=== PATIENT | female | born 1965 | race Caucasian/White ===

== ENCOUNTER 2019-04-04 22:27 | Emergency (ER) | payer OTHER, SELFPAY ==
[2019-04-04] MEDS ORDERED: diphenhydrAMINE 50 MG/ML VIAL ONE (23:05)
[2019-04-04] MEDS ORDERED: methylPREDNISolone Sod Succ/PF 125 MG/2 ML VIAL ONE (23:05)
== END 2019-04-05 00:05 | disposition home or self-care (01) ==
LOC: MADERS 22:27
DX: L50.0 Allergic urticaria (principal)
CPT/HCPCS: 96374; 96375; J1200; J2930

== ENCOUNTER 2023-05-30 14:59 | Emergency (ER) | payer OTHER, SELFPAY ==
[2023-05-30] MEDS ORDERED: Ibuprofen 800 MG TAB ONE (15:36)
[2023-05-30] MEDS ORDERED: HYDROcodone/Acetaminophen 5/325 mg Tablet ONE (15:37)
[2023-05-30] MEDS ORDERED: Ketamine 50 MG/ML (10ML VIAL) ONE (15:51)
[2023-05-30] MEDS ORDERED: Sodium Chloride 0.9% 1,000 ML ONE (15:51)
[2023-05-30] MEDS ORDERED: Ondansetron PF 4 MG/2 ML Vial ONE ×2 (16:20→16:27)
[2023-05-30] MEDS ORDERED: Promethazine HCl 25 MG/ML VIAL ONE (16:44)
== END 2023-05-30 17:40 | disposition home or self-care (01) ==
LOC: MADERS 14:59
DX: S43.015A Anterior dislocation of left humerus, initial encounter (principal); W22.8XXA Striking against or struck by other objects, initial encounter
CPT/HCPCS: 23650; 96365; 96375; 99152; J2405; J2550; J7050